=== PATIENT | female | born 1980 | race Caucasian/White ===

== ENCOUNTER 2023-11-14 12:20 | Emergency (ER) | payer BC, MEDICAID ==
[2023-11-14] MEDS: Ketorolac 60 MG/2 ML SDV IM ONE (14:09)
== END 2023-11-14 14:18 | disposition home or self-care (01) ==
LOC: JD.ED 12:20
DX: T78.40XA Allergy, unspecified, initial encounter (principal); R51.9 Headache, unspecified; Z88.1 Allergy status to other antibiotic agents; Z88.8 Allergy status to other drugs, medicaments and biological substances
CPT/HCPCS: 96372; 99282; J1885; 99283